=== PATIENT | female | born 1950 | race Two or more races ===

== ENCOUNTER 2021-05-18 15:14 | Inpatient (IN) | payer OTHER ==
[~2021-05-18] VITALS: Ht 160 cm; Wt 44.5 kg
--- NOTE | 2021-05-18 15:20 | NUR ---
BIB RA 77 FROM HOME,BLOOD SUGAR CHECK READ "HI" PATIENT A/OX4, BREATHING EVEN AND UNLABORED, NO SOB NOTED. ATTACHED TO THE MANAGER RELIABILITY.
[2021-05-18] MEDS ORDERED: IV NS 0.9% 1,000 ML BAG IV ONE ×2 (15:30→16:30)
--- NOTE | 2021-05-18 15:30 | NUR ---
IV LINE ESTABLISHED, BLOOD DRAWN AND SENT TO LAB.
[2021-05-18 15:36] LABS: BASOPHILS # (AUTO) 0.1 K/uL (0.0-0.2); BASOPHILS % (AUTO) 0.2 % (0.0-2.0); EOSINOPHILS % (AUTO) 0.1 % (0.0-6.0); HEMATOCRIT 48 % (33-45); HEMOGLOBIN 14.9 g/dL (11.5-14.8); LYMPHOCYTES # (AUTO) 1.5 K/uL (0.8-4.8); LYMPHOCYTES % (AUTO) 5.4 % (20.0-44.0); MEAN CORPUSCULAR HGB CONC 31 g/dl (31.0-36.0); MEAN CORPUSCULAR VOLUME 96 fL (82-100); MONOCYTES # (AUTO) 2.7 K/uL (0.1-1.30); MONOCYTES % (AUTO) 9.9 % (2.0-12.0); NEUTROPHILS # (AUTO) 22.8 K/uL (1.8-8.9); NEUTROPHILS % (AUTO) 84.4 % (43.0-81.0); PLATELET COUNT (AUTO) 402 K/uL (150-450); RED BLOOD CELL COUNT(AUTO) 5.06 MIL/uL (4.0-5.2)
[2021-05-18 15:54] LABS: ALANINE AMINOTRANSFERASE 35 U/L (12-78); ALBUMIN 4.4 g/dL (3.4-5.0); ALKALINE PHOSPHATASE 106 U/L (46-116); ASPARTATE AMINOTRANSFERASE 18 U/L (15-37); BILIRUBIN,DIRECT 0.3 mg/dL (0.0-0.2); BILIRUBIN,TOTAL 0.9 mg/dL (0.2-1.0); CALCIUM, SERUM 10.5 mg/dL (8.5-10.1); CHLORIDE 85 mmol/L (98-107); CREATININE 1.8 mg/dL (0.6-1.3); POTASSIUM 4.3 mmol/L (3.5-5.1); SODIUM SERUM 133 mmol/L (136-145); TOTAL PROTEIN, SERUM 8.4 g/dL (6.4-8.2); UREA NITROGEN, BLOOD 39 mg/dL (7-18)
[2021-05-18 16:16] LABS: SERUM AMMONIA 21 umol/L (11-32); THYROID STIMULATING HORMONE 8.373 uIU/mL (0.358-3.74)
[2021-05-18 16:17] LABS: ALCOHOL, BLOOD < 3 mg/dL (0-0)
[2021-05-18 16:21] LABS: CARBON DIOXIDE 8 mmol/L (21-32); GLUCOSE 836 mg/dL (74-106)
--- NOTE | 2021-05-18 16:27 | NUR ---
RECEIVED ORDER TO GIVE INSULIN DRIP 4U/HR. PHARMACY MADE AWARE.
[2021-05-18] MEDS ORDERED: INSULIN REGULAR, HUMAN 100 UNIT/ML 10 ML VIAL ONE (16:30)
[2021-05-18] MEDS ORDERED: INSULIN REGULAR, HUMAN 100 UNIT/ML 10 ML VIAL IV ONE (16:30)
--- NOTE | 2021-05-18 16:51 | NUR ---
PANEL ON-CALL PAGED
[2021-05-18] MEDS: INS (REG) DRIP 100 U/100 ML NS IV PRN ×2 (16:55→19:50)
--- NOTE | 2021-05-18 17:16 | NUR ---
GOING TO ICU 262
[2021-05-18] MEDS ORDERED: INSU100I30 SUBCUT (17:22)
[2021-05-18] MEDS ORDERED: INSU100I14 SQ (17:22)
[2021-05-18 17:26] LABS: MAGNESIUM 2.4 mg/dL (1.8-2.4); PHOSPHORUS 7.7 mg/dL (2.5-4.9)
--- NOTE | 2021-05-18 17:32 | NUR ---
REPORT GIVEN TO RUBÉN MO FOR МАРИЯ.
--- NOTE | 2021-05-18 17:53 | NUR ---
SUSHANT Yung DR/ JAMESON MADE AWARE, RECEIVED ORDER TO DECREASE INSULIN TO 2U/HR.
[2021-05-18] MEDS ORDERED: BLOOD SUGAR DIAGNOSTIC 1 EACH STRIP IN ONE (18:00)
--- NOTE | 2021-05-18 18:18 | NUR ---
SHOTGUN SHELL LOADING MACHINE OPERATOR SOFI. PH# [phone]
[2021-05-18 18:29] LABS: BILIRUBIN,URINE Negative (NEGATIVE); COLOR,URINE YELLOW (YELLOW); LEUKOCYTE ESTERASE ,URINE Trace (NEGATIVE); NITRITE, URINE Negative (NEGATIVE); PROTEIN,URINE Negative (NEGATIVE); UGLUCOSE 500 MG/DL mg/dL (NEGATIVE); UROBILINOGEN,URINE 0.2 EU/dL (0.2)
[2021-05-18 18:43] LABS: BACTERIA,URINE Few /HPF (None Seen); RBC,URINE NONE SEEN /HPF (0-2); SQUAMOUS EPITHELIAL CELL,UR Few /HPF (None Seen)
--- NOTE | 2021-05-18 18:47 | NUR ---
PATIENT A/OX3, BREATHING EVEN AND UNLABORED, NO SOB NOTED, NEEDS ATTENDED. IV INSULIN INFUSING AT THIS TIME. MELI PALMER CALLED AND ACCEPTED PATIENT.
[2021-05-18 18:53] LABS: PHOSPHORUS 3.6 mg/dL (2.5-4.9)
[2021-05-18] MEDS ORDERED: INSULIN REGULAR, HUMAN 100 UNIT in IV NS 0.9% 99 ML IV PRN (19:00)
[2021-05-18] MEDS ORDERED: DEXTROSE 50%-WATER 50 ML DISP.SYRIN IV PRN (19:00)
[2021-05-18] MEDS ORDERED: IV NS 0.9% 1,000 ML IV PRN (19:00)
[2021-05-18] MEDS ORDERED: BLOOD SUGAR DIAGNOSTIC 1 EACH STRIP IN SCH (19:00)
--- NOTE | 2021-05-18 19:17 | NUR ---
BS 351
[2021-05-18 19:35] VITALS: BP 117/74
--- NOTE | 2021-05-18 19:35 | NUR ---
PT TRANSFERED PER ACLS PROTOCOL BY PREVIOUS ER NURSE.
[2021-05-18 19:45] VITALS: BP 119/60
--- NOTE | 2021-05-18 20:10 | NUR ---
ICU/PEARL CUTTER PT CAME FROM ER ON INSULIN DRIP.CHILDCARE TEACHER NURSE SCANNED INSULIN DRIP MEDICATION. ORDERS WERE RECEIVED FROM MELI STEVENSON TO FOLLOW ALGORITHM #3. ALSO STAT ABG, BMP ORDERS PUT IN EVERY 4 HOURS STARTING AT 1999. PT IS EXPRESSING NON-COMPLIANCE FOR HER BLOOD SUGARS, SAYING "I DON'T CARE, I WANT TO EAT AND DRINK."
[2021-05-18] MEDS: BLOOD SUGAR DIAGNOSTIC 1 EACH STRIP IN SCH ×4 (20:16→23:10)
--- NOTE | 2021-05-18 20:22 | NUR ---
ABG DONE. NOTIFIED RN WITH THE RESULT. PT ON ROOM AIR O2 SAT 99%.
[2021-05-18 20:23] VITALS: BP 109/72
--- NOTE | 2021-05-18 20:30 | NUR ---
ICU/NET WEB APPLICATION DEVELOPER ABG DONE AND SENT RESULTS TO GRAAHM GARRISON WITH ORDERS RECIEVED. AND CARRIED OUT FOR BICARB DRIP. MEDICAL RECORD ASSISTANT NURSE AWARE.
[2021-05-18 20:32] LABS: CALCIUM, SERUM 8.5 mg/dL (8.5-10.1); CREATININE 1.2 mg/dL (0.6-1.3); POTASSIUM 3.8 mmol/L (3.5-5.1)
[2021-05-18 20:35] LABS: MAGNESIUM 2.1 mg/dL (1.8-2.4); PHOSPHORUS 2.7 mg/dL (2.5-4.9)
[2021-05-18 21:00] VITALS: BP 106/52
[2021-05-18] MEDS ORDERED: SODIUM BICARBONATE SYR 50 MEQ/50 ML DISP.SYRIN IV ONE (21:00)
[2021-05-18] MEDS ORDERED: SODIUM BICARBONATE SYR 100 MEQ in IV D5/0.45 NACL 1,000 ML IV PRN (21:00)
[2021-05-18] MEDS ORDERED: SODIUM BICARBONATE SYR 100 MEQ in IV D5/0.45 NACL 1,000 ML IV ONE (21:00)
--- NOTE | 2021-05-18 21:00 | NUR ---
ICU/COURTESY BOOTH CASHIER ORDERS FOR ABG X 2 EVERY 4 HOURS , ORDERS NOTES AND PLACED IN COMPUTER.
--- NOTE | 2021-05-18 21:03 | NUR ---
ICU/VACUUM CLEANER REPAIRER NO NEED TO DO 1 AMP BICARB PUSH WITH THE 1 LITER FOR FLUIDS PLUS BICARB. CHARGE NURSE AWARE OF ORDERS.
[2021-05-18] MEDS: CEFTRIAXONE 1 G in IV D5W 50 ML IV SCH (21:11)
[2021-05-18 22:00] VITALS: BP 114/53
[2021-05-18] MEDS: INSULIN GLARGINE, 100 UNIT/ML CARTRIDGE SQ SCH (22:00)
[2021-05-18] MEDS ORDERED: GABAPENTIN 100 MG CAPSULE PO ONE (22:30)
--- NOTE | 2021-05-18 22:40 | NUR ---
ICU/BALL POINT SPLITTER 2099-MAO CATH PUT IN PLACE 2129-PT TO HAVE IVF WITH 2 AMP OF BICARB AT 80ML X1 LITER OF FLUIDS, NO 1 AMP OF BICARB PUSH. 2144-POTASSIUM LEVEL IS 3.8, PANEL GLUER-MELI Garcia SAID NO NEED TO DO 20MEQ OF KCL. WILL WAIT TILL MIDNIGHT LABS. 2199-GRAHAM GARRISON HERE NOTIFED HER PT COMPLAIN OF SEVER LEG PAIN, ORDER FOR NEURONTIN RECIEVED. ALSO AT THIS TIME SAID TO GO TO ALGORITHM #2. DUE TO SUGARS ARE NOW IN THE 200'S. 2209-IVF TO CHANGE ONCE MIDNIGHT LABS ARE IN, WILL RECEIVE NEW ORDERS FOR THE CHANGE OF BICARB. 2214-CHARGE NURSE CHELY CANALES IS AWARE OF THESE NEW ORDERS.
--- NOTE | 2021-05-18 22:48 | NUR ---
ICU/WEAPONS ENGINEER NO LANTUS WHILE ON INSULIN DRIP. SLITTING AND SHIPPING SUPERVISOR NURSE MADE AWARE OF ORDERS
[2021-05-18 23:00] VITALS: BP 109/53
[2021-05-19] VITALS (14 sets, daily range): BP systolic 94–132; BP diastolic 47–71
[2021-05-19] MEDS: BLOOD SUGAR DIAGNOSTIC 1 EACH STRIP IN SCH ×9 (00:01→08:18)
[2021-05-19 00:18] LABS: CALCIUM, SERUM 8.4 mg/dL (8.5-10.1); MAGNESIUM 1.9 mg/dL (1.8-2.4)
--- NOTE | 2021-05-19 00:29 | NUR ---
SECOND ABG ORDERED DONE PER GRAHAM GARRISON. PT ON ROOM AIR NO RESP DISTRESS O2 SAT 100%. NOTIFIED RN AND MOCK UP BUILDER WITH THE RESULT.
--- NOTE | 2021-05-19 00:45 | NUR ---
ICU/HVAC MECHANICAL ENGINEER ABG, LABS, LACTIC ACID WERE ALL DONE WITH NO ABNORMAL RESULTS. LABS ARE MOVING TOWARDS NORMAL RANGE. GRAHAM GARRISON AND CHARGE NURSE MADE AWARE. NO NEEDS FOR ANOTHER ABG AT 0400 DUE TO THE NORMAL RESULTS. CHARGE NURSE MADE AWARE.
[2021-05-19 04:38] LABS: CALCIUM, SERUM 8.3 mg/dL (8.5-10.1); CREATININE 0.8 mg/dL (0.6-1.3); PHOSPHORUS 2.9 mg/dL (2.5-4.9); POTASSIUM 3.6 mmol/L (3.5-5.1)
--- NOTE | 2021-05-19 05:24 | NUR ---
ICU/NURSE PRACTITIONER PER DIEM NOTIFED [facility] ABOUT MORNING LABS, SAID TO GIVE 1 BAG OF MAGNESIUM. LIFE SCIENCE TECHNICAL OFFICER AWARE OF THIS. ORDERS WERE CARRIED OUT.
[2021-05-19] MEDS: Magnesium 1GM/D5W 100ML PREMIX 100 ML IV SCH ×2 (05:30→05:51)
--- NOTE | 2021-05-19 06:03 | NUR ---
ICU/CORK PAINTER AND GRADER DIET IS STARTED FOR THIS PT. ORDER WAS PUT INTO THE COMPUTER.
--- NOTE | 2021-05-19 07:31 | NUR ---
RN NOTES RECEIVED PT ON BED A/Ox3, ON RA , O2 SAT WNL, ON TELE SR ,MAO DRAINING TO GRAVITY, PT ON INSULIN DRIP AT 1 U/HR AT THIS TIME, CONTINUE TO MONITOR BLOOD GLUCOSE, SR UP x3, CALL LIGHT WITHIN EASY REACH, BED LOCKED AND IN LOWEST POSITION, CONTINUE TO MONITOR.
[2021-05-19] MEDS ORDERED: IV NS 0.9% 1,000 ML IV PRN (08:00)
[2021-05-19] MEDS ORDERED: DEXTROSE 50%-WATER 50 ML DISP.SYRIN IV PRN (08:30)
[2021-05-19] MEDS: GABAPENTIN 100 MG CAPSULE PO SCH ×2 (08:40→18:25)
[2021-05-19] MEDS: PANTOPRAZOLE 40 MG VIAL IV SCH (08:40)
--- NOTE | 2021-05-19 08:58 | NUR ---
PER FOLLOW UP ABG NOT INDICATED AT THIS TIME.
[2021-05-19] MEDS ORDERED: INSULIN REGULAR, HUMAN 100 UNIT in IV NS 0.9% 99 ML IV PRN (09:00)
--- NOTE | 2021-05-19 09:30 | NUR ---
RN NOTES PT TRANSFERRED TO ROOM 321-1 , MS STATUS IN STABLE CONDITION, REPORT GIVEN TO JESSI MO FOR CONTINUITY OF CARE , TOOK , PT'S BELONGINGS .
--- NOTE | 2021-05-19 09:35 | NUR ---
received pt. from icu.oriented to rm. spouse present.left phone number.iv hooked up.vs taken.
--- NOTE | 2021-05-19 11:30 | NUR ---
button tacker light carroll. requesting extra food.
[2021-05-19] MEDS: BLOOD SUGAR DIAGNOSTIC 1 EACH STRIP VI SCH ×3 (12:14→21:31)
[2021-05-19] MEDS: INSULIN REGULAR, HUMAN 100 UNIT/ML 3 ML VIAL SQ PRN ×2 (12:25→17:43)
[2021-05-19 17:11] LABS: CREATININE, URINE 18.3 MG/DL (30.0-125.0); URINE TOTAL PROTEIN 15.2 mg/dL (0-11.9)
[2021-05-19] MEDS: ropiniROLE 0.5 MG TABLET PO SCH (18:26)
--- NOTE | 2021-05-19 18:30 | NUR ---
wandering about unit,states she wants to go home.
--- NOTE | 2021-05-19 19:44 | NUR ---
MS RN OPENING NOTES RECEIVED PATIENT SITTING ON A CHAIR BESIDE BED. PATIENT IS ALERT AND ORIENTED X 4. ON ROOM AIR TOLERATING WELL, NO SOB NOTED, IN NO ACUTE DISTRESS NOTED. VS WNL. NOTED WITH IV ACCESS ON RFA G#20, PATENT AND FLUSHES WELL, IV ACCESS ON RAC, PATENT AND FLUSHES WELL, NO REDNESS NOTED ON BOTH IV ACCESS. WITH FC CONNECTED TO URINE BAG DRAINING CLEAR YELLOW COLORED URINE. PATIENT WANDERS AROUND THE UNIT WELL, INSTRUCTED TO STAY IN ROOM AND CALL FOR ASSISTANCE WHEN NEEDED. PATIENT VERBALIZED UNDERSTANDING OF INSTRUCTIONS GIVEN. SAFETY PRECAUTIONS OBSERVED: BED ON LOWEST LOCKED POSITION. CALL LIGHT WITHIN EASY REACH. WILL CONTINUE TO MONITOR PATIENT'S CONDITION.
[2021-05-19] MEDS: CEFTRIAXONE 1 G in IV D5W 50 ML IV SCH (20:18)
[2021-05-19] MEDS: INSULIN GLARGINE, 100 UNIT/ML CARTRIDGE SQ SCH (21:28)
[2021-05-19] MEDS: *INSULIN REGULAR(HUMULIN R)HUM 100 UNIT/ML VIAL SQ PRN (21:29)
--- NOTE | 2021-05-19 21:55 | NUR ---
RN NOTES BLOOD SUGAR RESULT OF 263, 6 UNITS OF REGULAR INSULIN GIVEN ORDERED.
--- NOTE | 2021-05-20 06:25 | NUR ---
RN NOTES PATIENT BLOOD GLUCOSE RESULT OF 98 MG/DL, NO INSULIN COVERAGE.
--- NOTE | 2021-05-20 06:26 | NUR ---
MS RN CLOSING NOTES PATIENT IN BED, AWAKE, PATIENT IS ALERT AND ORIENTED X 4. ON ROOM AIR TOLERATING WELL, NO SOB NOTED, IN NO ACUTE DISTRESS NOTED. VS WNL. NOTED WITH IV ACCESS ON RFA G#20, PATENT AND FLUSHES WELL, IV ACCESS ON RAC G#18, PATENT AND FLUSHES WELL, NO REDNESS NOTED ON BOTH IV ACCESS. WITH FC CONNECTED TO URINE BAG DRAINING CLEAR YELLOW COLORED URINE. SAFETY PRECAUTIONS OBSERVED AND MAINTAINED DURING THE SHIFT: BED ON LOWEST LOCKED POSITION, SIDE RAILS RAISED X 2, KEPT CALL LIGHT WITHIN EASY REACH. ALL NEEDS ATTENDED, DUE MEDS GIVEN ORDERED. WILL ENDORSE TO MORNING [facility] NURSE FOR МАРИЯ.
[2021-05-20] MEDS: BLOOD SUGAR DIAGNOSTIC 1 EACH STRIP VI SCH ×2 (06:30→11:10)
[2021-05-20] MEDS: INSULIN REGULAR, HUMAN 100 UNIT/ML 3 ML VIAL SQ PRN (06:30)
[2021-05-20 06:42] LABS: CALCIUM, SERUM 8.3 mg/dL (8.5-10.1); CARBON DIOXIDE 28 mmol/L (21-32); CHLORIDE 108 mmol/L (98-107); CREATININE 0.5 mg/dL (0.6-1.3); GLUCOSE 94 mg/dL (74-106); MAGNESIUM 2.1 mg/dL (1.8-2.4); PHOSPHORUS 2.2 mg/dL (2.5-4.9); POTASSIUM 3.3 mmol/L (3.5-5.1); SODIUM SERUM 143 mmol/L (136-145); UREA NITROGEN, BLOOD 21 mg/dL (7-18)
[2021-05-20 06:58] LABS: BASOPHILS % (AUTO) 0.4 % (0.0-2.0); EOSINOPHILS % (AUTO) 1.7 % (0.0-6.0); HEMATOCRIT 36 % (33-45); HEMOGLOBIN 12.3 g/dL (11.5-14.8); LYMPHOCYTES # (AUTO) 1.3 K/uL (0.8-4.8); LYMPHOCYTES % (AUTO) 15.2 % (20.0-44.0); MEAN CORPUSCULAR HGB CONC 35 g/dl (31.0-36.0); MEAN CORPUSCULAR VOLUME 89 fL (82-100); MONOCYTES # (AUTO) 0.6 K/uL (0.1-1.30); MONOCYTES % (AUTO) 7.8 % (2.0-12.0); NEUTROPHILS # (AUTO) 6.2 K/uL (1.8-8.9); NEUTROPHILS % (AUTO) 74.9 % (43.0-81.0); PLATELET COUNT (AUTO) 208 K/uL (150-450); RED BLOOD CELL COUNT(AUTO) 4.02 MIL/uL (4.0-5.2); WHITE BLOOD COUNT (AUTO) 8.2 K/uL (4.3-11.0)
--- NOTE | 2021-05-20 07:14 | NUR ---
MS RN OPENING NOTES RECEIVED PATIENT RESTING IN BED. PATIENT IS ALERT AND ORIENTED X 4. PATIENT BREATHING EVENLY AND NONLABORED ON ROOM AIR TOLERATING WELL, NO SOB NOTED, IN NO ACUTE DISTRESS NOTED. NOTED WITH IV ACCESS ON RFA G#20, PATENT AND FLUSHES WELL, RUNNING NS @ 75 ML/ HR, IV ACCESS ON RAC, PATENT AND FLUSHES WELL, NO REDNESS NOTED ON BOTH IV ACCESS. WITH FC CONNECTED TO URINE BAG DRAINING CLEAR YELLOW COLORED URINE. PER REPORT PATIENT WANDERS AROUND THE UNIT WELL, INSTRUCTED TO STAY IN ROOM AND CALL FOR ASSISTANCE WHEN NEEDED. PATIENT VERBALIZED UNDERSTANDING OF INSTRUCTIONS GIVEN. SAFETY PRECAUTIONS OBSERVED: BED ON LOWEST LOCKED POSITION, SIDE RAILS UP. CALL LIGHT WITHIN EASY REACH. WILL CONTINUE TO MONITOR
[2021-05-20 07:53] VITALS: BP 127/62
[2021-05-20 08:20] VITALS: BP 128/76
[2021-05-20] MEDS: PANTOPRAZOLE 40 MG VIAL IV SCH (08:20)
[2021-05-20] MEDS: GABAPENTIN 100 MG CAPSULE PO SCH (08:20)
[2021-05-20] MEDS: ropiniROLE 0.5 MG TABLET PO SCH ×2 (08:20→12:01)
--- NOTE | 2021-05-20 08:30 | NUR ---
RN NOTE RECEIVED ORDER FROM DR CEDEÑO TO DISCONTINUE MAO CATHETER, TRB. MAO CATHETER DISCONTINUED, WILL MONITOR FOR VOIDING.
[2021-05-20] MEDS: POTASSIUM PHOSPHATE MM 7.5 MMOL in IV NS 0.9% 100 ML IV SCH ×2 (08:38→11:38)
[2021-05-20] MEDS ORDERED: LISINOPRIL (5MG) 5 MG TABLET PO SCH (09:00)
[2021-05-20] MEDS: *INSULIN REGULAR(HUMULIN R)HUM 100 UNIT/ML VIAL SQ PRN (11:09)
--- NOTE | 2021-05-20 11:33 | NUR ---
RN NOTE PATIENT'S MAO WAS DISCONTINUED. PATIENT HAS HAS 2 EPISODES OF URINATION CLEAR YELLOW SINCE REMOVAL.
--- NOTE | 2021-05-20 14:54 | NUR ---
MS FOOD SERVICE SUBSTITUTE NOTE RECEIVED DISCHARGE ORDER PATIENT IS ALERT AND ORIENTED X 4. PATIENT BREATHING EVENLY AND NONLABORED ON ROOM AIR TOLERATING WELL, NO SOB NOTED, IN NO ACUTE DISTRESS NOTED. PATIENT WAS GIVEN DISCHARGE INSTRUCTIONS BOTH VERBALLY AND PRINTED OUT. PATIENT AND VERBALIZED UNDERSTANDING. IV ACCESS AND ID BAND WAS REMOVED. ALL BELONGINGS ACCOUNTED FOR AND TAKEN WITH PATIENT, BELONGINGS FORM SIGNED. PATIENT LEFT IN STABLE CONDITION VIA PRIVATE CAR WITH HER .
== END 2021-05-20 14:52 | disposition home or self-care (01) | DRG 871 ==
LOC: ER 15:22 → ICU 18:58 → MED 05-19 09:44
PROVIDERS: ADMIT Nurse Practitioner Acute Care; ATTEND Internal Medicine
DX: A41.9 Sepsis, unspecified organism (principal); E11.10 Type 2 diabetes mellitus with ketoacidosis without coma; N17.0 Acute kidney failure with tubular necrosis; N39.0 Urinary tract infection, site not specified; E11.40 Type 2 diabetes mellitus with diabetic neuropathy, unspecified; I10 Essential (primary) hypertension; Z79.4 Long term (current) use of insulin; Z91.14 Patient's other noncompliance with medication regimen; R94.6 Abnormal results of thyroid function studies; G25.81 Restless legs syndrome; E87.6 Hypokalemia; E83.39 Other disorders of phosphorus metabolism; Z20.822 Contact with and (suspected) exposure to COVID-19
CPT/HCPCS: 36415; 36600; 70450-TC; 71045-TC; 80048-TC; 80076-TC; 81001; 82140-TC; 82570-TC; 82803-TC; 82962-TC; 83605-TC; 83735-TC; 84100-TC; 84155-TC; 84443-TC; 85025-TC; 87086-TC; C9113; C9803; G0378; G0480; J0696; J1815; J3475; J3490; J7030; J7060